=== PATIENT | female | born 1965 | race African-American/Black ===

== ENCOUNTER 2017-02-07 08:01 | Inpatient (IN) | payer BC, OTHER ==
[2017-01-29 14:04] LABS: HEMATOCRIT 34.6 % (36.0-48.0); HEMOGLOBIN 11.5 g/dL (12.0-16.0)
[2017-01-29 14:17] LABS: BUN (BLOOD UREA NITROGEN) 14 MG/DL (6-23); CALCIUM, SERUM 8.6 MG/DL (8.5-10.4); CHLORIDE, SERUM 111 MMOL/L (96-112); CO2 (CARBON DIOXIDE) 29 MMOL/L (24-34); CREATININE 0.81 MG/DL (0.55-1.02); GFR AFRICAN AMERICAN 96 ML/MIN (>=60); GFR NON AFRICAN AMERICAN 83 ML/MIN (>=60); GLUCOSE, SERUM 111 MG/DL (60-99); POTASSIUM, SERUM 3.7 MMOL/L (3.5-5.3); SODIUM, SERUM 146 MMOL/L (135-148)
--- NOTE | ~2017-02-07 | PREOPHP ---
PreOp History and Physical [facility] [id number] [place]. [address] NAME: TMOAS QUILES : 61 STATUS : ADM IN PAT#: [id number] AGE: 51 ADM/REG DATE : 02/07/17 MR#: [id number] REPORT SERV DATE: 02/07/17 DICTATED BY: DONALD ARANA DATE: 02/07/17 REPORT STATUS : Draft TRANSCRIBED BY: ORTEGA DATE: 02/07/17 CHIEF COMPLAINT: Back pain and left lower extremity pain, paresthesias, and weakness. HISTORY OF PRESENT ILLNESS: The patient is a 51-year-old with intractable back and leg pain with feelings of weakness and paresthesias. She has failed multiple attempts at conservative treatment. After discussion of risks and benefits, the patient elects to proceed with surgery. She has failed physical therapy, epidural injections, and medications. She has had a prior L5-S1 diskectomy. REVIEW OF SYSTEMS: She denies any chest pain, shortness of breath, and bowel or bladder changes. ALLERGIES: DENIED. HOME MEDICATIONS: Include meloxicam. FAMILY HISTORY: Noncontributory. PAST MEDICAL HISTORY: Includes fibromyalgia and anemia. PHYSICAL EXAMINATION: VITAL SIGNS: Height 5 feet 4 inches, weight 185. BMI of 31.8. GENERAL: The patient is healthy appearing, in no acute distress. PSYCH: Alert and oriented x3. Normal mood and affect. Gait is antalgic. VASCULAR: No extremity swelling. SPINE: Decreased lumbar motion. NEUROLOGIC: Strength in the lower extremities remains intact with 5/5 motor strength. HEART: Regular rate and rhythm. LUNGS: Clear to auscultation. ABDOMEN: Soft, nontender, and nondistended. Good bowel sounds. BREASTS AND RECTAL: Both deferred. IMAGING: I have reviewed the MRI scan of the lumbar spine. It reveals L5-S1 disk disease and stenosis with nerve root compression. ASSESSMENT: Lumbar disk disease and stenosis. Lumbar radiculopathy, failed conservative treatment. PLAN: The patient presents today for surgical intervention. Consent was obtained. All questions were answered. The patient is ready to proceed with surgery. CRISTINA/ORTEGA Donald Arana DO PreOp History and Physical [address] [address] NAME: TOMAS QUILES : 61 STATUS : ADM IN PAT#: [id number] AGE: 51 ADM/REG DATE : 02/07/17 MR#: [id number] REPORT SERV DATE: 02/07/17 DICTATED BY: DONALD ARANA DATE: 02/07/17 REPORT STATUS : Draft TRANSCRIBED BY: MODL DATE: 02/07/17 / [id number] CC: DO Emerson Russell M.D.
--- NOTE | ~2017-02-07 | OP ---
Record Of Operation [facility] [address] [place]. [address] NAME: TOMAS QUILES : 61 STATUS : ADM IN PAT#: [id number] AGE: 51 ADM/REG DATE : 02/07/17 MR#: [id number] REPORT SERV DATE: 02/07/17 DICTATED BY: DONALD ARANA DATE: 02/07/17 REPORT STATUS : Draft TRANSCRIBED BY: MODL DATE: 02/07/17 DATE OF PROCEDURE: 02/07/2017 PREOPERATIVE DIAGNOSIS: L5-S1 disk disease and stenosis with lumbar radiculopathy. POSTOPERATIVE DIAGNOSIS: L5-S1 disk disease and stenosis with lumbar radiculopathy. PROCEDURE: Left-sided L5-S1 transforaminal lumbar interbody fusion, minimal access spine technology, neuromonitoring, operative microscope, intraoperative O-arm CT scan with computer navigation, local morcellized autograft, allograft bone matrix, and bone morphogenic protein. SURGEON: Donald Arana DO ANESTHESIA: General. ESTIMATED BLOOD LOSS: 50 mL. COMPLICATIONS: None. INDICATIONS: The patient is a 51-year-old with intractable back and left leg pain. Failed conservative treatment. After discussion of risks and benefits, elected to proceed with surgical intervention. PROCEDURE IN DETAIL: I identified the patient in the holding area. Consent was obtained. Went to the operating room. Underwent general anesthesia with endotracheal intubation. Prepped and draped in the usual sterile fashion. Operative safety pause was performed, and then we proceeded with surgery. A left-sided longitudinal incision was made over the L5-S1 level taken down through the fascial layer. Tube dilators were used to minimally invasively dissect down to the left L5-S1 interspace. Operative microscope was brought in. A skylar was used to perform a laminotomy and partial facetectomy, Edgar performed a foraminotomy including removal of a large bony bridge causing severe nerve compression. The nerve was reddish purple from long-term compression, but it was free at the end of the decompression portion. Knife was used to perform an annulotomy and disk space was prepared with curettes, rasp, and endplate cutters. Allograft bone matrix, bone morphogenic protein, and local morcellized autograft were packed into the L5-S1 interspace followed by a [employer] PEEK interbody spacer with allograft bone matrix. O-arm was brought back in to verify the position of implants, and then under computer guidance, pedicle screws from [employer] were placed at L5-S1 bilaterally. O-arm was brought back in a final time to verify good placement of pedicle screws. Next, the rods were reduced down to the screws, set screws were placed and final tightened. Copious irrigation was performed. Hemostasis achieved. A gram of vancomycin powder sprinkled over the surgical wound. Layered closure performed. Sterile dressings applied. The patient was awakened, extubated, and taken to the recovery room in stable condition. OPERATIVE FINDINGS: Severe disk disease and stenosis with severe left-sided foraminal Record Of Operation [address] 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 No sustained neuromonitoring alerts. CRISTINA/ORTEGA Donald Arana DO / [id number] CC: Donald Arana DO
[~2017-02-07 08:01] MED LIST: GLUCPH PO; LORTABLIQ PO; MAX25 PO; MEDROXYPROGESTERONE PO; MOBIC7.5 PO; PHENERGAN; SUCR PO
[2017-02-07 15:28] LABS: BASOPHILS 0 %; EOSINOPHILS 0.1 %; EOSINOPHILS ABSOLUTE 0.01 10/3/uL (0.0-0.53); HEMATOCRIT 34.4 % (36.0-48.0); HEMOGLOBIN 11.9 g/dL (12.0-16.0); IMMATURE GRANULOCYTES 0.5 %; IMMATURE GRANULOCYTES ABSOLUTE 0.04 10/3/uL (0.0-0.11); LYMPHOCYTES 11.3 %; MEAN CORPUS HGB CONC 34.6 g/dL (32.0-36.0); MEAN CORPUSCULAR HEMOGLOB 31.2 pg (26.0-34.0); MEAN CORPUSCULAR VOLUME 90.1 fL (80-100); MEAN PLATELET VOLUME 9.7 fL (9.2-13.0); MONOCYTES ABSOLUTE 0.18 10/3/uL (0.21-1.20); NEUTROPHILS 86.1 %; NEUTROPHILS ABSOLUTE 7.62 10/3/uL (2.02-8.40); PLATELET COUNT 216 10/3/uL (150-400); RBC DISTRIBUTION WIDTH 12.8 % (12.0-16.0); RED CELL COUNT 3.82 10/6/uL (4.0-5.6); WHITE BLOOD CELLS 8.9 10/3/uL (4.5-10.5)
[2017-02-07 15:29] LABS: MANUAL DIFF NO %
[2017-02-07 15:38] LABS: BUN (BLOOD UREA NITROGEN) 10 MG/DL (6-23); CALCIUM, SERUM 8.5 MG/DL (8.5-10.4); CHLORIDE, SERUM 107 MMOL/L (96-112); CO2 (CARBON DIOXIDE) 27 MMOL/L (24-34); CREATININE 0.86 MG/DL (0.55-1.02); GFR AFRICAN AMERICAN 89 ML/MIN (>=60); GFR NON AFRICAN AMERICAN 77 ML/MIN (>=60); GLUCOSE, SERUM 152 MG/DL (60-99); POTASSIUM, SERUM 4.1 MMOL/L (3.5-5.3); SODIUM, SERUM 142 MMOL/L (135-148)
[2017-02-08 05:27] LABS: BASOPHILS 0 %; EOSINOPHILS 0 %; HEMATOCRIT 34.9 % (36.0-48.0); HEMOGLOBIN 11.6 g/dL (12.0-16.0); IMMATURE GRANULOCYTES 0.1 %; IMMATURE GRANULOCYTES ABSOLUTE 0.01 10/3/uL (0.0-0.11); LYMPHOCYTES 8.4 %; LYMPHOCYTES ABSOLUTE 0.72 10/3/uL (0.67-4.30); MEAN CORPUS HGB CONC 33.2 g/dL (32.0-36.0); MEAN CORPUSCULAR VOLUME 90.2 fL (80-100); MEAN PLATELET VOLUME 10.1 fL (9.2-13.0); MONOCYTES 8.6 %; MONOCYTES ABSOLUTE 0.74 10/3/uL (0.21-1.20); NEUTROPHILS 82.9 %; NEUTROPHILS ABSOLUTE 7.13 10/3/uL (2.02-8.40); PLATELET COUNT 222 10/3/uL (150-400); RED CELL COUNT 3.87 10/6/uL (4.0-5.6); WHITE BLOOD CELLS 8.6 10/3/uL (4.5-10.5)
[2017-02-08 05:28] LABS: MANUAL DIFF NO %
[2017-02-08 05:44] LABS: BUN (BLOOD UREA NITROGEN) 8 MG/DL (6-23); CALCIUM, SERUM 8.6 MG/DL (8.5-10.4); CHLORIDE, SERUM 106 MMOL/L (96-112); CO2 (CARBON DIOXIDE) 26 MMOL/L (24-34); CREATININE 0.73 MG/DL (0.55-1.02); GFR AFRICAN AMERICAN 109 ML/MIN (>=60); GFR NON AFRICAN AMERICAN 94 ML/MIN (>=60); POTASSIUM, SERUM 4.6 MMOL/L (3.5-5.3); SODIUM, SERUM 138 MMOL/L (135-148)
[2017-02-08 05:46] LABS: GLUCOSE, SERUM 119 MG/DL (60-99)
[2017-02-09] MEDS ORDERED: PCET PO (09:42)
[2017-02-09] MEDS ORDERED: FLEX PO (09:42)
== END 2017-02-09 12:59 | disposition home or self-care (01) | DRG 460 ==
LOC: SDC/OF 08:01 → PACU 14:42 → 3SO 18:08
PROVIDERS: Orthopaedic Surgery
PROC: 0SG30A1 (ICD-10-PCS; principal; 2017-02-07 10:15)
PROC: 0ST40ZZ Resection of Lumbosacral Disc, Open Approach (ICD-10-PCS; 2017-02-07 10:15)
PROC: 4A11X4G Monitoring of Peripheral Nervous Electrical Activity, Intraoperative, External Approach (ICD-10-PCS; 2017-02-07 10:15)
DX: M51.17 Intervertebral disc disorders with radiculopathy, lumbosacral region (principal); I10 Essential (primary) hypertension; Z95.1 Presence of aortocoronary bypass graft
CPT/HCPCS: 80048; 82962; 85014; 85018; 85025; 87641; 88304; 88311; 93005; 97116-GP; 97161-GP; A9270-GY; C1713; J0690; J1644; J2250; J2270; J2370; J2405; J2550; J2710; J3010; J3370